=== PATIENT | male | born 1945 | race Caucasian/White ===

== ENCOUNTER 2019-06-06 08:36 | Emergency (ER) | payer MEDICARE, SELFPAY ==
--- NOTE | 2019-06-06 09:37 | ED.GENADULT ---
HPI - General Adult General Chief complaint: Eye Problems Stated complaint: right eye drainage/redness Time Seen by Provider: 06/06/19 10:02 Source: patient Mode of arrival: ambulatory Limitations: no limitations History of Present Illness HPI narrative: 73-year-old male patient [facility] complaints of crusting to the right eye that they noticed this morning. Caregiver states that they were here to get lab work done at [facility] and thought they did come and get checked out. Denies noticing any itchiness however says states that he does itch his eyes a lot in the morning. Denies any copious amounts of discharge. Denies that he has been complaining of any pain. Denies any fevers or recent cold symptoms however they do state that he does have a chronic runny nose. Related Data Home Medications Medication Instructions Recorded Confirmed amlodipine 10 mg PO DAILY 06/06/19 06/06/19 aspirin 81 mg PO DAILY 06/06/19 06/06/19 dutasteride 0.5 mg PO DAILY 06/06/19 06/06/19 fish [id number]-7-vit C-vit E g PO 06/06/19 linaclotide [Linzess] 290 mcg PO DAILY 06/06/19 06/06/19 losartan 25 mg PO DAILY 06/06/19 06/06/19 memantine 10 mg PO BID 06/06/19 06/06/19 [id number]-vit K tablet PO 06/06/19 [Adults Multivitamin] pravastatin 10 mg PO DAILY 06/06/19 06/06/19 ranitidine HCl 150 mg PO BID 06/06/19 06/06/19 rivastigmine tartrate 1.5 mg PO BID 06/06/19 06/06/19 tamsulosin 0.4 mg PO HS 06/06/19 06/06/19 Allergies Allergy/AdvReac Type Severity Reaction Status Date / Time amoxicillin [From Augmentin] Allergy Unknown Verified 06/06/19 09:55 clavulanic acid Allergy Unknown Verified 06/06/19 09:55 [From Augmentin] Review of Systems Review of Systems: Narrative: CONSTITUTIONAL: Denies fever, chills, or sweats. EYES: Denies visual changes, redness, positive right eye discharge/crusting. ENT: Positive chronic rhinorrhea, denies congestion, sore throat, or otalgia. CARDIOVASCULAR: Denies chest pain, palpitations, or edema. RESPIRATORY: Denies cough or dyspnea. GASTROINTESTINAL: Denies abdominal pain, nausea, vomiting, or diarrhea. GENITOURINARY: Denies dysuria or hematuria. SKIN: Denies rash or itching. MUSCULOSKELETAL: Denies back pain, joint pain, or myalgia. NEUROLOGIC: Denies headache, numbness, or weakness. PSYCHIATRIC: Denies anxiety or depression. PMFSH Comments At the time of my signature I agree with nursing past medical history, surgical, social, and family history. There is no relevant family history pertinent to the presenting complaint. Exam Narrative: Exam Narrative: GENERAL: Well-appearing, well-nourished, and in no acute distress. HEAD: Normocephalic, atraumatic. EYES: PERRLA and EOM intact without limitation or complaint of pain, no periorbital soft tissue swelling ,no erythema, warmth or tenderness noted, no obvious deformity. No crusting or swelling.no tearing or draining.No photophobia. No nystagmus No FB or lesion on lid eversion. Corneas grossly clear, no obvious FB or hyphens/hypopyon. No injection to sclera. Lids and lashes clear. ENT: Nares clear, no rhinorrhea or epistaxis. Mucous membranes moist. NECK: Supple. No lymphadenopathy CHEST: Clear to auscultation. No respiratory distress. HEART: Regular rate and rhythm. No murmur heard. Normal peripheral pulses. ABDOMEN: Soft, nontender, nondistended, normal active bowel sounds. EXTREMITIES: Normal range of motion. No edema. SKIN: Warm, dry, no rash. NEURO: No focal deficits. Alert and oriented x3. Course Vital Signs Vital signs: Vital Signs Temperature 36.7 C 06/06/19 09:50 Pulse Rate 60 06/06/19 09:50 Respiratory Rate 16 06/06/19 09:50 Blood Pressure 145/64 H 06/06/19 09:50 Pulse Oximetry 97 06/06/19 09:50 Temperature 36.7 C 06/06/19 09:50 Pulse Rate 60 06/06/19 09:50 Respiratory Rate 16 06/06/19 09:50 Blood Pressure 145/64 H 06/06/19 09:50 Pulse Oximetry 97 06/06/19 09:50 Vital
[2019-06-06 09:50] VITALS: BP 145/64; PULSE 60; RESP 16; TEMP 36.7; O2SAT 97
== END 2019-06-06 10:13 | disposition home or self-care (01) ==
PROVIDERS: Emergency Provider Nurse Practitioner Family
DX: H10.11 Acute atopic conjunctivitis, right eye (principal); F03.90 Unspecified dementia, unspecified severity, without behavioral disturbance, psychotic disturbance, mood disturbance, and anxiety; I10 Essential (primary) hypertension; E11.9 Type 2 diabetes mellitus without complications
CPT/HCPCS: 99203; G0463